=== PATIENT | female | born 1965 | race African-American/Black ===

== ENCOUNTER 2018-07-23 14:07 | Emergency (ER) | payer BC ==
[~2018-07-23] VITALS: Ht 162.6 cm; Wt 63.5 kg
[2018-07-23 14:53] VITALS: BP_SYST 156
--- NOTE | 2018-07-23 16:29 | NUR ---
Patient to ER bed 4 to gown for evaluation. Side rails up. Report given to Yimi DOWNING.
[2018-07-23] MEDS ORDERED: PROCHLORPERAZINE EDISYLATE 10 MG/2 ML VIAL IVP ONE (16:45)
[2018-07-23] MEDS ORDERED: MORPHINE 4 MG/ML INJ. SYRINGE IVP ONE (16:45)
[2018-07-23] MEDS ORDERED: DIPHENHYDRAMINE INJ 50 MG/ML VIAL IVP ONE (16:45)
--- NOTE | 2018-07-23 16:45 | NUR ---
Dr. Correia at bedside assessing patient.
--- NOTE | 2018-07-23 16:50 | NUR ---
Patient arrived to the ER with a headache of 7 out of 10. She states that her headache is in the posterior and anterior, and left lateral side of her head. She said that she has not been able to sleep for the past 2 weeks. She says she's been having a headache since around 10 pm last night. Patient is A&Ox4. Bed is in the lowest position, lights are dimmed.
--- NOTE | 2018-07-23 17:00 | NUR ---
22G IV inserted on LFA. IV is patent and saline locked.
--- NOTE | 2018-07-23 18:00 | NUR ---
Pt reports pain resolved.
--- NOTE | 2018-07-23 19:08 | NUR ---
1907 - Received report from SALINA Geller. Pt does not have ride at this time. Pt informed she will need to have someone pick her up or take a taxi home d/t receiving morphine earlier. Pt is in no distress, resp even and unlabored.
--- NOTE | 2018-07-23 19:30 | NUR ---
1929 - Patient given written and verbal discharge instructions by SALINA Miramontes and verbalizes understanding. ER MD discussed with patient the results and treatment provided. Patient in stable condition. ID arm band removed. Patient educated on pain management and to follow up with PMD. Pain Scale 0. Opportunity for questions provided and answered. Medication side effect fact sheet provided.
[2018-07-23 19:43] VITALS: BP_SYST 156
== END 2018-07-23 19:30 | disposition home or self-care (01) ==
LOC: SED 14:07
DX: G43.909 Migraine, unspecified, not intractable, without status migrainosus (principal); R03.0 Elevated blood-pressure reading, without diagnosis of hypertension; Z86.59 Personal history of other mental and behavioral disorders
CPT/HCPCS: 81025; 96374; 96375; 99283; J0780; J1200; J2270